=== PATIENT | male | born 1995 | race Two or more races ===

== ENCOUNTER 2024-10-04 17:47 | Emergency (ER) | payer MEDICAID ==
[~2024-10-04] VITALS: Ht 170.2 cm; Wt 63.0 kg
[2024-10-04 18:15] VITALS: TEMP 98.6
[2024-10-04] MEDS: BACITRACIN 0.9 GM PACKET OINTMENT TP ONE (19:36)
[2024-10-05 00:30] VITALS: BP 130/73; PULSE 87; RESP 20; O2SAT 100
== END 2024-10-05 01:24 | disposition home or self-care (01) ==
LOC: EMS 17:47
DX: S00.81XA Abrasion of other part of head, initial encounter (principal); R51.9 Headache, unspecified; Y04.8XXA Assault by other bodily force, initial encounter; Y93.89 Activity, other specified; Y92.89 Other specified places as the place of occurrence of the external cause; Y99.8 Other external cause status
CPT/HCPCS: 99284; 70450; 36415; 70486; 72125; G0480